=== PATIENT | male | born 1950 | race Caucasian/White ===

== ENCOUNTER 2020-11-12 16:16 | Emergency (ER) | payer MEDICARE, OTHER | END 2020-11-12 21:05 | disposition home or self-care (01) | LOC: FER 16:16 | DX: U07.1 COVID-19 (principal); I10 Essential (primary) hypertension; Z87.442 Personal history of urinary calculi; Z86.73 Personal history of transient ischemic attack (TIA), and cerebral infarction without residual deficits; Z88.8 Allergy status to other drugs, medicaments and biological substances | CPT/HCPCS: 71045; J7050; M0239 ==